=== PATIENT | female | born 1960 | race Caucasian/White ===

== ENCOUNTER 2017-05-04 10:19 | Outpatient (CLI) | payer OTHER | END 2017-05-04 10:20 | disposition home or self-care (01) | LOC: BICMRI 10:19 | PROVIDERS: ATTEND Psychiatry & Neurology Neurology | DX: R20.1 Hypoesthesia of skin (principal); M25.78 Osteophyte, vertebrae; M99.81 Other biomechanical lesions of cervical region | CPT/HCPCS: 72141 ==

== ENCOUNTER 2018-01-07 13:19 | Outpatient (CLI) | payer OTHER | END 2018-01-07 13:20 | disposition home or self-care (01) | LOC: BICMAMMO 13:19 | PROVIDERS: ATTEND Family Medicine | DX: Z12.31 Encounter for screening mammogram for malignant neoplasm of breast (principal); Z80.3 Family history of malignant neoplasm of breast | CPT/HCPCS: 77063; 77067 ==

== ENCOUNTER 2019-03-10 11:25 | Outpatient (CLI) | payer OTHER ==
--- NOTE | 2019-03-10 13:12 | MMO ---
Bilateral MAMMO Bilat Screen [facility]. CLINICAL HISTORY: Patient is 58 years old and is seen for screening. The patient has no family history of breast cancer. The patient has no personal history of cancer. VIEWS: The views performed were: bilateral craniocaudal with tomosynthesis and bilateral mediolateral oblique with tomosynthesis. FILMS COMPARED: The present examination has been compared to prior imaging studies performed at [facility] on 05/08/2014, 05/04/2016, 10/15/2016 and 01/07/2018. This study has been interpreted with the assistance of computer-aided detection. MAMMOGRAM FINDINGS: There are scattered fibroglandular densities. There are no suspicious masses, suspicious calcifications, or new areas of architectural distortion. IMPRESSION: THERE IS NO MAMMOGRAPHIC EVIDENCE OF MALIGNANCY. A ROUTINE FOLLOW-UP MAMMOGRAM IN 1 YEAR IS RECOMMENDED. THE RESULTS OF THIS EXAM WERE SENT TO THE PATIENT. ACR BI-RADS Category 1 - Negative MAMMOGRAPHY NOTE: 1. A negative mammogram report should not delay a biopsy if a dominant of clinically suspicious mass is present. 2. Approximately 10% to 15% of breast cancers are not detected by mammography. 3. Adenosis and dense breasts may obscure an underlying neoplasm. Reported by: YOLI WILKINSON MD Electonically Signed: [id number]
== END 2019-03-10 11:26 | disposition home or self-care (01) ==
LOC: BICMAMMO 11:25
PROVIDERS: ATTEND Family Medicine
DX: Z12.31 Encounter for screening mammogram for malignant neoplasm of breast (principal)
CPT/HCPCS: 77063; 77067

== ENCOUNTER 2020-05-03 10:19 | Outpatient (CLI) | payer OTHER | END 2020-05-03 10:20 | disposition home or self-care (01) | LOC: BICMAMMO 10:19 | PROVIDERS: ATTEND Family Medicine | DX: Z12.31 Encounter for screening mammogram for malignant neoplasm of breast (principal) | CPT/HCPCS: 77063; 77067 ==